=== PATIENT | female | born 1945 | race Caucasian/White ===

== ENCOUNTER → 2016-11-17 | Day surgery (SDC) | payer MEDICARE ==
[~2016-11-17] MED LIST: ALBUTEROL17 GM; ALBUTEROL17 GM INH; ALLEGRA ALLERG180 MG PO; ANEXSIA 5/325 M1 TA1 PO; ASPIRIN PO; ASPIRIN81 M2 PO; ATENOLOL25 MG PO; B; BETAPACE PO; BETAPACE80 MG PO; BONIVA 150 MG; BONIVA150 MG PO; CALCIUM + VITA1 EAC1 PO; CALCIUM 500 + D1 TAB PO; CALCIUM 5001 TAB PO; CALTRATE 600+D PO; COUMADIN5 MG PO; CYANOCOBALAM1000 MCG PO; DITROPAN PO; DITROPAN XL PO; DITROPAN5 MG PO; DOK100 MG PO; EXCEDRIN MIGRAI1 TA1 PO; FIBERCON625 MG PO; FLEXERIL10 MG PO; FLORINEF0.1 M1 PO; FOLIC ACID PO; FOLIC ACID1 MG PO; GAS-X125 MG PO; IRON1 TAB PO; KLONOPIN PO; LEFLUNOMIDE; LORTAB 7.5-5001 TAB PO; MACROBID100 M1 PO; MELATONIN10 M2 PO; METHOTREXATE 2.5 MG; METHOTREXATE2.5 MG PO; METOPROLOL; MS CONTIN PO; MULTIVITAMIN W/1 TAB PO; NEURONTIN PO; NEURONTIN100 MG PO; NEXIUM PO; NICOTINE TRANSD14 MG EXT; NIFEREX-150150 MG PO; PERCOCET 10/3251 TAB PO; PERCOCET10 PO; PHENERGAN PO; PLAQUENIL PO; PLAQUENIL200 MG PO; PREDNISONE PO; PREDNISONE10 MG PO; PREDNISONE5 M1 PO; PRILOSEC PO; PROBIOTIC1 EAC5 PO; PROLIA60 MG/1 ML; REGLAN PO; REQUIP1 MG PO; STOOL SOFTENER1 EAC1 PO; SYMBICORT INH; TOVIAZ8 MG PO; TYLENOL #3 PO; TYLENOL325 M1 PO; VENTOLIN5 MG/ML IH; VIT B-12 PO; VITAMIN B-121000 MCG PO; VITAMIN D; VITAMIN D2000 UNI1 PO; VITAMIN D400 UNI2 PO; WARFARIN SODIUM4 M1 PO; ZANTAC PO; [UNRECOGNIZED DRUG - OTHER]; [UNRECOGNIZED DRUG - REMARK]
--- NOTE | ~2016-11-17 | OR ---
Unit #: [id number] #: [id number] Patient: KAT MONTESINOS [id number] [address] [place], [place] [address] [id number] O MR#: [id number] NAME: KAT MONTESINOS ROOM: Date of Procedure: 11/17/2016 Admission Date: 11/17/2016 Surgeon: Johnny Venegas M.D. : 1945 Attending Physician: Johnny Venegas M.D. Primary Care Physician: Yonny Wilkerson M.D. SURGERY CENTER OPERATIVE NOTE PROCEDURE PERFORMED Lumbar epidural steroid injection under x-ray guided needle placement with provider administered conscious sedation. PREOPERATIVE DIAGNOSES 1. Acute lumbar radiculitis. 2. Spinal stenosis, lumbosacral spine. 3. Degenerative disk disease, lumbosacral spine. 4. Degenerative joint disease, lumbosacral spine. INDICATIONS FOR PROCEDURE The patient presents today with longstanding history of chronic lumbar radicular pain secondary to her underlying degenerative processes. She is generally fairly well managed medically with ongoing continuous conservative measures; however, she does occasionally experience exacerbations, which to date have only responded to interventional pain management procedures. She is currently experiencing just such an exacerbation which is similar to past and is failed to respond to her ongoing continuous conservative measures. She presents today requesting an epidural steroid injection. After discussing risks and benefits of proceeding today with a lumbar approach epidural steroid injection, the patient agreed this would be the appropriate course of action. DESCRIPTION OF PROCEDURE She was then taken to the operating room, where she was prepped and draped in a sterile manner. Standard monitors were applied. She was sedated initially with 1 mg of IV Versed and required an additional 1 mg throughout the duration of procedure. Lumbar epidural space accessed at the L5-S1 and L2-L3 levels using loss of resistance technique and x-ray guidance. Needle placement was confirmed at each level with injection of 2 mL of Omnipaque. At the L5-S1 level, the dye flow was directional approximately 80% in the inferior direction and at L2-L3 level, it was directional with approximately 80% in the superior direction. There was some coverage of the intervening lumbar levels; however, at the next visit, we will most likely look to an L4-L5 or an L3-L4 initial needle location. However today's visit, we had good needle placement with a total x-ray time was 7 seconds. Following this needle placement confirmation, the patient received at L2-L3 and at L5-S1 injection containing 4 mL normal saline and 40 mg of methylprednisolone each for total injectate volume of 8 mL of normal saline and 80 mg of methylprednisolone. She tolerated this procedure well. She was discharged home with followup instructions, which include return to this clinic as early as 02/23/2017 if we could be of further service to her. Unit #: [id number] #: [id number] Patient: KAT MONTESINOS Dictated by... Taurus Tuttle/baldemar TD: 11/18/2016 02:51 JOB #: [id number] SUR[facility]ENTER OPERATIVE NOTE X Mal Venegas MD PROCEDURE OPERATIVE NOTE
== END | disposition home or self-care (01) ==
LOC: CCSC 09:33
DX: G89.29 Other chronic pain (principal); M48.06 Spinal stenosis, lumbar region; M51.16 Intervertebral disc disorders with radiculopathy, lumbar region; M19.90 Unspecified osteoarthritis, unspecified site; K21.9 Gastro-esophageal reflux disease without esophagitis; N32.81 Overactive bladder; Z87.01 Personal history of pneumonia (recurrent); Z90.89 Acquired absence of other organs; Z90.49 Acquired absence of other specified parts of digestive tract; Z87.19 Personal history of other diseases of the digestive system; Z88.8 Allergy status to other drugs, medicaments and biological substances; Z79.899 Other long term (current) drug therapy
CPT/HCPCS: J1040; J2250

== ENCOUNTER → 2017-02-23 | Day surgery (SDC) | payer MEDICARE ==
--- NOTE | ~2017-02-23 | OR ---
Unit #: [id number] #: [id number] Patient: KAT MONTESINOS [id number] [address] [place], [place] [address] [id number] O MR#: [id number] NAME: KAT MONTESINOS ROOM: Date of Procedure: 02/23/2017 Admission Date: 02/23/2017 Surgeon: Johnny Venegas M.D. : 1945 Attending Physician: Johnny Venegas M.D. Referring Physician: Johnny Venegas M.D. Primary Care Physician: Yonny Wilkerson M.D. SURGERY CENTER OPERATIVE NOTE JOB NOTE: CC: DR. YONNY WILKERSON. PROCEDURE PERFORMED Lumbar epidural steroid injection under x-ray guided needle placement with provider administered conscious sedation. PREOPERATIVE DIAGNOSES 1. Acute lumbar radiculitis. 2. Spinal stenosis, lumbosacral spine. 3. Degenerative joint disease, lumbosacral spine. 4. Degenerative disk disease, lumbosacral spine. INDICATIONS FOR PROCEDURE The patient presents today with a longstanding history of chronic lumbar radicular pain secondary to her underlying degenerative processes. She has multiple levels of degenerative disease and has in the past had exacerbations successfully treated with epidural steroid injections. She states over the course of time since she has been receiving epidural steroid injections she feels that her amount of relief is waning. After discussing risks and benefits of proceeding today with a dual approach technique and a followup on 05/25/2017, the patient agreed this would be the appropriate course of action. She was cautioned that if she felt she was no longer receiving benefit from these epidural steroid injections to not to keep that appointment and to follow up with her referring and/or primary care provider for potential referal to more aggressive pain management treatment to include medical treatment as well as consideration of surgical consultation. DESCRIPTION OF PROCEDURE Following these discussions, the patient was taken to the operating room, where she was prepped and draped in a sterile manner. Standard monitors were applied. She was sedated initially with 1 mg of IV Versed and required an additional 2 mg of IV Versed and 1 mL of IV fentanyl throughout the duration of the procedure. Lumbar epidural space was accessed at the L5-S1 level using loss of resistance technique and x-ray guidance. Needle placement was confirmed with injection of 2 mL of Omnipaque. There was good superior and inferior flow to this L5-S1 placed needle. Following the injection of 4 mL of normal saline, 40 mg of methylprednisolone that needle was withdrawn and the patient had second access point at the L2-L3 level, again using loss of resistance technique and x-ray guidance. Total x-ray time for this dual needle placement was 12 seconds. Following successful needle placement at the L2-L3 level confirmed with injection of 2 mL of Omnipaque, which 80% of the dye flow Unit #: [id number] #: [id number] Patient: KAT MONTESINOS was in the superior direction. The patient received an injectate containing 4 mL of normal saline and 40 mg of methylprednisolone for a total injected volume today of 8 mL of normal saline and 80 mg of methylprednisolone. She tolerated this procedure well. She was discharged home with followup instructions, which include return days as described above as well as information regarding whether to return or not. Dictated by... Taurus Tuttle/baldemar TD: 02/24/2017 01:52 JOB #: [id number] SUR[facility] CENTER OPERATIVE NOTE Page 1 of 1 X Mal Venegas MD PROCEDURE OPERATIVE NOTE
== END | disposition home or self-care (01) ==
LOC: CCSC 09:00
DX: G89.29 Other chronic pain (principal); M51.17 Intervertebral disc disorders with radiculopathy, lumbosacral region; M47.27 Other spondylosis with radiculopathy, lumbosacral region; M48.07 Spinal stenosis, lumbosacral region; I25.2 Old myocardial infarction; K21.9 Gastro-esophageal reflux disease without esophagitis; M19.90 Unspecified osteoarthritis, unspecified site; Z87.01 Personal history of pneumonia (recurrent); Z88.3 Allergy status to other anti-infective agents; Z79.82 Long term (current) use of aspirin; Z79.899 Other long term (current) drug therapy; Z79.51 Long term (current) use of inhaled steroids; Z90.49 Acquired absence of other specified parts of digestive tract; Z90.710 Acquired absence of both cervix and uterus; Z96.642 Presence of left artificial hip joint; Z98.890 Other specified postprocedural states
CPT/HCPCS: J1040; J2250; J2310; J3010

== ENCOUNTER → 2017-05-25 | Day surgery (SDC) | payer MEDICARE ==
--- NOTE | ~2017-05-25 | OR ---
Unit #: [id number] #: [id number] Patient: KAT MONTESINOS [id number] [address] [place], [place] [address] [id number] O MR#: [id number] NAME: KAT MONTESINOS ROOM: Date of Procedure: 05/25/2017 Admission Date: 05/25/2017 Surgeon: Johnny Venegas M.D. : 1945 Attending Physician: Mal Venegas Primary Care Physician: Yonny Wilkerson M.D. SURGERY CENTER OPERATIVE NOTE PROCEDURE PERFORMED Lumbar epidural steroid injection under x-ray guided needle placement. PREOPERATIVE DIAGNOSES 1. Acute lumbar radiculitis. 2. Spinal stenosis, lumbosacral spine. 3. Degenerative joint disease, lumbosacral spine. 4. Degenerative disk disease, lumbosacral spine. INDICATIONS FOR PROCEDURE The patient presents today with longstanding history of chronic lumbar radicular pain secondary to her underlying degenerative processes. She is generally fairly well managed medically with ongoing medical therapy and physical activity as she can tolerate. She does occasionally however experience exacerbations, which to date have only responded to epidural steroid injections. Her usual amount of response is 60% to 80% for 6 to 8 weeks. She presents today having just such an exacerbation, which is consistent with past exacerbations as well as her x-ray studies. After discussing risks and benefits of proceeding today with dual needle epidural steroid injection technique, the patient agreed this would be the appropriate course of action. DESCRIPTION OF PROCEDURE She was then taken to the operating room, where she was prepped and draped in a sterile manner. Standard monitors were applied. She was sedated with 1 mg of IV Versed and required an additional 1 mg of IV Versed throughout the duration of procedure. Lumbar epidural space was unsuccessfully accessed at the L4-L5 level; however, we did access the L5-S1 level without difficulty. Following an injection at the L5-S1 level containing 4 mL normal saline and 80 mg of methylprednisolone after needle placement with loss of resistance and confirmation with the injection of 2 mL of Omnipaque, the patient had a second needle placed into the L2-L3 level again using loss of resistance technique and x-ray guidance. Needle placement at the L2-L3 level was confirmed with injection of 2 mL of Omnipaque. At the L5-S1 level, approximately 80% of dye flow was in the inferior direction. At the L2-L3 level, dye flow was 50:50 in the superior and inferior directions. Following second needle access point, the patient received an injection of 4 mL normal saline and 40 mg of methylprednisolone at the L2-L3 level for a total injectate volume today of 8 mL normal saline and 80 mg of methylprednisolone. She tolerated this procedure well. She was discharged home with followup instructions, which include return to this clinic on 08/17/2017, at which point, we will evaluate her lumbar disease in followup. Unit #: [id number] #: [id number] Patient: KAT MONTESINOS Dictated by... Johnny Venegas M.D. JRG/baldemar TD: 05/25/2017 11:43 JOB #: [id number] CC: Keshav Tarango M.D. SUR[facility]ERY CENTER OPERATIVE NOTE Page 1 of 1 X Mal Venegas MD X PROCEDURE OPERATIVE NOTE
== END | disposition home or self-care (01) ==
LOC: CCSC 10:22
DX: G89.29 Other chronic pain (principal); M51.17 Intervertebral disc disorders with radiculopathy, lumbosacral region; M47.27 Other spondylosis with radiculopathy, lumbosacral region; M48.07 Spinal stenosis, lumbosacral region; I25.2 Old myocardial infarction; K21.9 Gastro-esophageal reflux disease without esophagitis; M19.90 Unspecified osteoarthritis, unspecified site; Z87.01 Personal history of pneumonia (recurrent); Z88.1 Allergy status to other antibiotic agents; Z88.8 Allergy status to other drugs, medicaments and biological substances; Z90.49 Acquired absence of other specified parts of digestive tract; Z79.82 Long term (current) use of aspirin; Z79.891 Long term (current) use of opiate analgesic; Z79.899 Other long term (current) drug therapy; Z98.890 Other specified postprocedural states
CPT/HCPCS: J1040; J2250